=== PATIENT | female | born 1985 | race Caucasian/White ===

== ENCOUNTER → 2017-07-04 | Outpatient (CLI) | payer BC ==
[~2017-07-04] MED LIST: BUPR-79 PO; CYM/30 PO; IBUP-1427 PO; SIMV20TA2 PO
== END | disposition home or self-care (01) ==
LOC: C.PAPS 12:59
PROVIDERS: ATTEND Family Medicine
DX: Z12.4 Encounter for screening for malignant neoplasm of cervix (principal); Z11.51 Encounter for screening for human papillomavirus (HPV)

== ENCOUNTER → 2018-01-01 | Outpatient (CLI) | payer BC ==
--- NOTE | 2018-01-01 19:06 | DIAGNOSTIC IMAGING REPORT ---
L FOOT MIN 3 VIEWS ROUTINE CLINICAL HISTORY: L FOOT PAIN trauma. Pain. COMPARISON: None. DISCUSSION: The bones and joint spaces appear intact. There is no evidence of fracture, dislocation or bony disease. There is no evidence for soft tissue swelling. IMPRESSION: Negative study. The above report was generated using voice recognition software. It may contain grammatical, syntax or spelling errors. Electronically signed by: Shawn Gentile M.D. 01/01/2018 7:05 PM Dictated Date/Time: 01/01/2018 7:05 PM
== END | disposition home or self-care (01) ==
LOC: C.RAD 18:41
PROVIDERS: ATTEND Family Medicine
DX: M79.672 Pain in left foot (principal)